=== PATIENT | male | born 1995 | race African-American/Black ===

== ENCOUNTER 2022-04-08 07:10 | Inpatient (IN) ==
--- NOTE | 2022-04-08 08:00 | Emergency Department Note ---
History of Present Illness General Chief complaint: Respiratory Problems Stated complaint: CLOTS IN LUNGS,HARD TO BREATHE Time Seen by Provider: 04/08/22 07:24 History of Present Illness Maximum Pain Intensity: 5 This 26-year-old male presents today with a female healthcare applications analyst, for evaluation of increasing shortness of breath, right shoulder pain, and left calf pain. Patient was seen here 3 days ago and was diagnosed with bilateral PEs with right subsegmental infarct of the lung. He was placed on Eliquis at that time. Patient states he has been taking it as directed. He has been taking the etodolac as prescribed as well. He states it is not doing anything for his pain. He feels his shortness of breath is getting worse. He is experiencing a dry cough with exertion. He denies any nausea, or vomiting. Shoulder pain developed yesterday. Left calf pain developed yesterday. It is medial. Patient has a family history of fatal PE in his brother. Home Medications Medication Instructions Recorded Confirmed Type ketoconazole 2 % shampoo 1 applic topical DAILY 12/08/20 04/08/22 History albuterol sulfate 90 mcg/actuation 2 puff inhalation Q4 PRN Wheezing 01/03/22 04/08/22 History aerosol inhaler gabapentin 300 mg capsule 300 mg PO UD 01/03/22 04/08/22 History oxycodone 5 mg tablet 5 mg PO UD PRN Pain 01/03/22 04/08/22 History pantoprazole 40 mg tablet,delayed 40 mg PO DAILY 01/03/22 04/08/22 History release tretinoin 0.05 % topical cream 1 applic topical HS 01/03/22 04/08/22 History ursodiol 300 mg capsule 300 mg PO BID 01/03/22 04/08/22 History etodolac 200 mg capsule 200 mg PO Q12H PRN pain #14 caps 04/05/22 04/08/22 Rx enoxaparin 150 mg/mL subcutaneous 150 mg subcut Q12H #10 mL 04/09/22 Rx syringe (Lovenox) warfarin 5 mg tablet 5 mg PO DAILY #30 tabs 04/09/22 Rx Allergies Allergy/AdvReac Type Severity Reaction Status Date / Time procaine [From Novocain] Allergy Intermediate TINGLING/SW Verified 01/03/22 00:55 SYED Past Med/Surg History Medical History Asthma WELL CONTROLLED Defecation symptom INABILITY/PAIN...REASON FOR UPCOMING PROCEDURE History of anesthesia reaction WAS "PUT UNDER" FOR WISDOM TEETH AND WOKE UP DURING PROCEDURE Narcolepsy POSSIBLE - UPCOMING SLEEP STUDY FOR Sleep apnea POSSIBLE...UPCOMING SLEEP STUDY FOR Surgical History [place] teeth extracted Family History (Updated 04/08/22 @ 08:02 by Chico Samuels PA-C) Grandfather Family history of colon cancer Grandmother (Maternal) Family history of diabetes mellitus Grandfather (Maternal) Family history of diabetes mellitus Brother Pulmonary embolism Social History Smoking Status: Never smoker Do You Dip or Chew Tobacco: No; Hx Alcohol Use: No Hx Substance Use: No Preferred Language: Jamaican Communication Ability: Effective Concrete Technician Required: No Beliefs That Will Affect Care: None Current Living Situation: Parent Current Living Situation Comment: home Other Information That Helps Us Care for You: No Feels Safe at Home: Yes Safety Concerns: Feels Safe At This Time Assistive Devices: None Review of Systems A total of 10 systems reviewed and were otherwise negative Physical Exam Vital Signs Vital Signs - 24 hr 04/08/22 07:20 04/08/22 07:48 Temperature 36.2 C L Temperature Source Temporal Artery Scan Pulse Rate 86 79 Pulse Rhythm Regular Regular Pulse Strength Normal Respiratory Rate 20 18 Respiratory Effort / Characteristics Non-Labored Spontaneous Respiratory Depth Normal Respiratory Pattern Regular Blood Pressure 130/81 Blood Pressure Mean 97 Blood Pressure Position Sitting Pulse Oximetry 97 97 Oxygen Delivery Method Room Air Room Air Sepsis Recent Fever Within 48 Hours No Sepsis New/Unexplained Change in Mental Status No Sepsis Action Taken by Nursing No Action Required General: Well-developed, well-nourished, young -Prydeinig male, in no acute distress. Sitting on the bed. Alert and oriented. Skin: Warm and dry with good turgor. No rashes or lesions. No ecchymosis or erythema. The patient is not diaphoretic. No abrasions. HEENT: Normocephalic atraumatic. Eyes PERRLA, EOMI. No conjunctiva or scleral injection. Nares patent bilaterally without turbinate enlargement. No significant drainage. No epistaxis. Oropharynx without erythema or exudate. Uvula midline, oral mucosa moist. No lesions present. His lips appear slightly swollen. No ecchymosis or other discoloration. Heart: Heart RRR. No MGR. Peripheral pulses are 2+. Lungs: Lungs are clear to auscultation. No crackles rhonchi or wheezing. Good air movement. The patient is able to take a deep breath. Abdomen: Abdomen was inspected, auscultated, and palpated. Bowel sounds present x 4. Obese. Soft, nontender to palpation. No hepato-splenomegaly. No masses noted. No rebound. Musculoskeletal: Gross motor function of the upper and lower extremities is int act and unremarkable. Left medial gastroc is tender to touch. No palpable cords. There is discomfort with Homans testing. Right shoulder evaluation reveals no obvious asymmetry. Full range of motion. No specific discomfort with palpation at the shoulder itself. Neurologic: Gross sensation is intact across the upper and lower extremities by soft touch. Course Administered Medications Discontinued Medications Acetaminophen (Acetaminophen 325 Mg Tab) 325 mg PO Q4H PRN PRN Reason: pain (1,2,3) Stop: 05/08/22 11:37 Last Admin: 04/08/22 19:47 Dose: 325 mg Documented By: SANJAY Diphenhydramine HCl (Diphenhydramine 50 Mg/Ml Vial) 25 mg IV NOW STA Stop: 04/08/22 17:51 Last Admin: 04/08/22 19:43 Dose: 25 mg Documented By: SANJAY Enoxaparin Sodium (Enoxaparin 150 Mg/Ml Syr) 150 mg SQ Q12H ELIO Stop: 05/09/22 11:59 Last Admin: 04/09/22 13:14 Dose: 150 mg Documented By: MOISES Gabapentin (Gabapentin 300 Mg Cap) 300 mg PO DAILY ELIO Stop: 05/08/22 11:35 Last Admin: 04/09/22 08:23 Dose: 300 mg Documented By: Admin: 04/08/22 12:44 Dose: 300 mg Documented By: ROYAL Heparin Sodium (Porcine) (Heparin Sod (Porcine) 1000 Unit/Ml) 9,000 units IV NOW ONE Stop: 04/08/22 12:01 Last Admin: 04/08/22 12:44 Dose: 9,000 units Documented By: ROYAL Co-signed By: [id number] Heparin Sodium/Dextrose (Heparin Iv Adult Wt-Based Standard With Bolus Protocol) 1 each IV Q15M [facility]; Protocol Stop: 05/08/22 11:41 Last Admin: 04/08/22 14:24 Dose: 1 each Documented By: ROYAL Hydromorphone HCl (Hydromorphone Inj 0.5 Mg/0.5 Ml Syr) 0.5 mg IV NOW STA Stop: 04/08/22 10:36 Last Admin: 04/08/22 10:41 Dose: 0.5 mg Documented By: AMBIKA Heparin Sodium/Dextrose (Heparin Sodium/Dextrose) 25,000 units in 500 mls @ 41 mls/hr IV .[id number] [facility]; Protocol Stop: 05/08/22 11:59 Last Titration: 04/09/22 11:56 Dose: 0 units/hr, 0 mls/hr Documented By: MOISES Co-signed By: [id number] Titration: 04/09/22 07:41 Dose: 1,950 units/hr, 39 mls/hr Documented By: MOISES Co-signed By: ARTHUR Titration: 04/09/22 06:54 Dose: 1,950 units/hr, 39 mls/hr Documented By: MOISES Co-signed By: SANJAY Admin: 04/09/22 00:53 Dose: 1,950 units/hr, 39 mls/hr Documented By: SANJAY Co-signed By: QG Titration: 04/09/22 00:53 Dose: 1,950 units/hr, 39 mls/hr Documented By: SANJAY Co-signed By: QG Titration: 04/08/22 20:03 Dose: 1,950 units/hr, 39 mls/hr Documented By: SANJAY Co-signed By: [id number] Titration: 04/08/22 18:58 Dose: 2,050 units/hr, 41 mls/hr Documented By: SANJAY Co-signed By: ROYAL Admin: 04/08/22 12:44 Dose: 2,050 units/hr, 41 mls/hr Documented By: ROYAL Co-signed By: [id number] Prochlorperazine 10 mg/ (Syringe) 10 mls @ 5 mls/min IV ONE ONE Stop: 04/08/22 17:51 Last Admin: 04/08/22 19:33 Dose: 5 mls/min Documented By: SANJAY Sodium Chloride (Nss 1000ml) 1,000 mls @ 999 mls/hr IV .Q1H1M ONE Stop: 04/09/22 13:01 Last Infusion: 04/09/22 13:59 Dose: 0 mls/hr Documented By: Admin: 04/09/22 12:14 Dose: 999 mls/hr Documented By: MOISES Ioversol (Optiray 300 500ml) 120 ml IV ONCE ONE Stop: 04/08/22 08:49 Last Admin: 04/08/22 08:48 Dose: 120 ml Documented By: ELIAZAR Morphine Sulfate (Morphine Sulfate 2 Mg/Ml Carp) 2 mg IV NOW STA Stop: 04/08/22 10:25 Last Admin: 04/08/22 10:49 Dose: Not Given Documented By: AMBIKA Morphine Sulfate (Morphine Sulfate 2 Mg/Ml Carp) 2 mg IV Q4H PRN PRN Reason: Pain (4,5,6+) Stop: 04/22/22 11:37 Last Admin: 04/08/22 17:22 Dose: 2 mg Documented By: ROYAL Ondansetron HCl (Ondansetron Inj 2 Mg/Ml 2 Ml Vial) 4 mg IV NOW STA Stop: 04/08/22 10:25 Last Admin: 04/08/22 10:41 Dose: 4 mg Documented By: AMBIKA Ondansetron HCl (Ondansetron Inj 2 Mg/Ml 2 Ml Vial) 4 mg IV Q4H PRN PRN Reason: Nausea Stop: 05/08/22 17:29 Last Admin: 04/08/22 17:42 Dose: 4 mg Documented By: ROYAL Pantoprazole Sodium (Pantoprazole 40 Mg Tab) 40 mg PO DAILY ELIO Stop: 05/09/22 08:59 Last Admin: 04/09/22 08:23 Dose: 40 mg Documented By: MOISES Ursodiol (Ursodiol 300 Mg Cap) 300 mg PO BID ELIO Stop: 05/08/22 20:59 Last Admin: 04/09/22 08:23 Dose: 300 mg Documented By: Admin: 04/08/22 21:03 Dose: 300 mg Documented By: SANJAY Medical Decision Making Differential Diagnosis Increasing PE, additional pulmonary infarct, ACS, pneumonia, upper extremity DVT, pulmonary hypertension Medical Records Attestation: I reviewed the patient's medical records. Home Medications Current Medication List: was personally reviewed by me Laboratory Data CBC, chemistry panel, troponin, and COVID test were obtained today. CBC is unremarkable. COVID test is negative. Troponin is normal at 5.9. Chemistry panel shows normal renal function. Mild elevation in AST and ALT. Result diagrams: 04/09/22 06:35 04/09/22 06:35 Lab Results 04/08/22 04/08/22 04/08/22 Range/Units 07:48 07:48 07:48 WBC 5.67 (4.8-10.8) K/ul RBC 5.01 (4.63-6.08) M/uL Hgb 14.9 (14.0-18.0) g/dl Hct 44.7 (40.1-51.0) % MCV 89.2 (80.0-100.0) fL MCH 29.7 (25.0-34.0) pg MCHC 33.3 (32.0-36.0) g/dL RDW Std Deviation 44.6 (36.4-46.3) fL RDW Coeff of Negro 13.7 (11.5-14.5) % Plt Count 178 (130-400) K/uL MPV 13.1 H (9.4-12.4) fL Immature Gran % (Auto) 0.2 % Neut % (Auto) 77.8 % Lymph % (Auto) 15.3 % [place] % (Auto) 6.3 % Eos % (Auto) 0.2 % Baso % (Auto) 0.2 % Neut # (Auto) 4.41 (1.4-6.5) K/uL Lymph # (Auto) 0.87 L (1.2-3.4) K/uL [place] # (Auto) 0.36 (0.24-0.82) K/uL Eos # (Auto) 0.01 (0-0.50) K/uL Baso # (Auto) 0.01 (0-0.2) K/uL Immature Gran # (Auto) 0.01 (0.00-0.02) K/uL PT 12.2 H (9.0-12.0) Seconds INR 1.2 H (0.9-1.1) APTT 34.4 H (21.0-31.0) Seconds PTT Ratio 1.3 Sodium 140 (136-145) mmol/L Potassium 4.0 (3.5-5.1) mmol/L Chloride 106 (98-107) mmol/L Carbon Dioxide 28 (21-32) mmol/L Anion Gap 6 (3-11) BUN 6 (6-23) mg/dl Creatinine 0.74 (0.6-1.4) mg/dl Est Cr Clr Drug Dosing 241.9 ml/min Est GFR ( Amer) 147.5 ml/min Est GFR (Non-Af Amer) 127.3 ml/min BUN/Creatinine Ratio 8.1 L (10-20) Glucose 107 H (70-99(Fasting)) mg/dl Calcium 8.5 (8.5-10.1) mg/dl Total Bilirubin 0.7 (0.2-1.0) mg/dl AST 51 H (13-39) U/L ALT 57 H (7-52) U/L Alkaline Phosphatase 101 (34-104) U/L Troponin I High Sens 5.9 (0-20) pg/ml Total Protein 6.3 (6.0-8.3) gm/dl Albumin 3.8 (3.4-5.0) gm/dl Globulin 2.5 (2.5-4.0) gm/dl Albumin/Globulin Ratio 1.5 (0.9-2) SARS-CoV-2, RNA, NAAT (NEGATIVE) 04/08/22 Range/Units 10:00 WBC (4.8-10.8) K/ul RBC (4.63-6.08) M/uL Hgb (14.0-18.0) g/dl Hct (40.1-51.0) % MCV (80.0-100.0) fL MCH (25.0-34.0) pg MCHC (32.0-36.0) g/dL RDW Std Deviation (36.4-46.3) fL RDW Coeff of Negro (11.5-14.5) % Plt Count (130-400) K/uL MPV (9.4-12.4) fL Immature Gran % (Auto) % Neut % (Auto) % Lymph % (Auto) % [place] % (Auto) % Eos % (Auto) % Baso % (Auto) % Neut # (Auto) (1.4-6.5) K/uL Lymph # (Auto) (1.2-3.4) K/uL [place] # (Auto) (0.24-0.82) K/uL Eos # (Auto) (0-0.50) K/uL Baso # (Auto) (0-0.2) K/uL Immature Gran # (Auto) (0.00-0.02) K/uL PT (9.0-12.0) Seconds INR (0.9-1.1) APTT (21.0-31.0) Seconds PTT Ratio Sodium (136-145) mmol/L Potassium (3.5-5.1) mmol/L Chloride (98-107) mmol/L Carbon Dioxide (21-32) mmol/L Anion Gap (3-11) BUN (6-23) mg/dl Creatinine (0.6-1.4) mg/dl Est Cr Clr Drug Dosing ml/min Est GFR ( Amer) ml/min Est GFR (Non-Af Amer) ml/min BUN/Creatinine Ratio (10-20) Glucose (70-99(Fasting)) mg/dl Calcium (8.5-10.1) mg/dl Total Bilirubin (0.2-1.0) mg/dl AST (13-39) U/L ALT (7-52) U/L Alkaline Phosphatase (34-104) U/L Troponin I High Sens (0-20) pg/ml Total Protein (6.0-8.3) gm/dl Albumin (3.4-5.0) gm/dl Globulin (2.5-4.0) gm/dl Albumin/Globulin Ratio (0.9-2) SARS-CoV-2, RNA, NAAT NEGATIVE (NEGATIVE) Imaging Data My Impression: Chest x-ray obtained today shows a right basilar consolidation. Additional radiographic follow-up is recommended. No large pleural effusion or pneumothorax. Left lung appears clear. CTA of the chest was obtained because of his radiographic findings and dyspnea. He continues to have segmental and subsegmental pulmonary emboli of the right lower lobe. There is a perfusion defect in the anterior left kidney. This likely represents a small renal infarct. Pulmonary infarction of the right long persist. Small right pleural effusion. Left lung is clear. Venous Doppler of the lower extremities was obtained due to his calf pain and PEs. There is no evidence for DVT in the right or left leg. ECG Data Additional Comments: EKG obtained today shows a normal sinus rhythm with a rate of 76. No acute changes. No significant change from EKG obtained on April 05. This was reviewed with Dr. Scott. Blood Pressure Blood Pressure Findings: Normal blood pressure MDM Narrative Patient was evaluated in room C6. Conservative care measures were discussed. IV was established. Labs were obtained. EKG was obtained. Patient was placed on a nuclear monitoring technician throughout his stay in the ED. He remained in normal sinus rhythm with a rate in the 80s. Chest x-ray and CTA of the chest were also obtained. He shows additional infarct of the left kidney, which is new since 3 days ago. Patient was given Dilaudid 0.5 mg IV and Zofran 4 mg IV for his pain. Discomfort improved. Because of his increasing discomfort, I did speak with Dr. Benites regarding his anticoagulation. She recommended that he be on heparin instead of the Eliquis due to his size. His Eliquis may be an effective at his current dosing. Because of these factors, I did discuss admission with the patient. [facility] Please see that dictation for final management and outcome. Patient remained stable while in the ED. Impression & Plan Pulmonary emboli, Renal infarct [facility] Consultation was previously obtained with Dr. Benites. Care plan was discussed with Dr. Scott. Vitals remained stable while in the ED. Discharge Plan Visit Data Chief Complaint: Respiratory Problems Stated Complaint: CLOTS IN LUNGS,HARD TO BREATHE ED Provider: Juan Francisco Scott ED Midlevel Provider: Chico Samuels Discharge Problem: Pulmonary emboli, Renal infarct Patient Disposition: Admitted As Inpatient Discharge Instructions Interventions: ED Discharge Assessment Last Done: 04/08/22 13:28
[2022-04-08 08:23] LABS: Basophils # (auto) 0.01 K/uL (0-0.2); Basophils % (auto) 0.2 %; Eosinophils # (auto) 0.01 K/uL (0-0.50); Eosinophils % (auto) 0.2 %; Hematocrit (blood only) 44.7 % (40.1-51.0); Hemoglobin 14.9 g/dl (14.0-18.0); Immature Granulocytes # (auto) 0.01 K/uL (0.00-0.02); Immature Granulocytes % (auto) 0.2 %; Lymphocytes # (auto) 0.87 K/uL (1.2-3.4); Lymphocytes % (auto) 15.3 %; Mean Corpuscular Hemoglobin 29.7 pg (25.0-34.0); Mean Corpuscular Hgb Conc 33.3 g/dL (32.0-36.0); Mean Corpuscular Volume 89.2 fL (80.0-100.0); Mean Platelet Volume 13.1 fL (9.4-12.4); Monocytes # (auto) 0.36 K/uL (0.24-0.82); Monocytes % (auto) 6.3 %; Neutrophils # (auto) 4.41 K/uL (1.4-6.5); Neutrophils % (auto) 77.8 %; Platelet Count 178 K/uL (130-400); RDW Coefficient of Variation 13.7 % (11.5-14.5); RDW Standard Deviation 44.6 fL (36.4-46.3); Red Blood Count 5.01 M/uL (4.63-6.08); White Blood Count 5.67 K/ul (4.8-10.8)
--- NOTE | 2022-04-08 08:29 | XRay Report ---
SINGLE VIEW CHEST CLINICAL HISTORY: Dyspnea FINDINGS: An AP, portable, upright chest radiograph is compared to study dated 03/30/2022. The cardiom ediastinal silhouette is unremarkable. There is right basilar consolidation. Left lung appears clear. No large pleural effusion or pneumothorax is seen. The bony thorax is grossly intact. IMPRESSION: There is right basilar consolidation. Correlate clinically for evidence of pneumonia/aspi ration pneumonitis. Radiographic follow-up to resolution is recommended. ACT 112: Negative or not required by law. Electronically signed by: Vickey Godinez M.D. 04/08/2022 8:28 AM
[2022-04-08 08:32] LABS: Troponin I High Sensitivity 5.9 pg/ml (0-20)
[2022-04-08 08:33] LABS: Albumin Globulin Ratio 1.5 (0.9-2); Albumin Level 3.8 gm/dl (3.4-5.0); BUN Creatinine Ratio 8.1 (10-20); Bilirubin,Total 0.7 mg/dl (0.2-1.0); Calcium 8.5 mg/dl (8.5-10.1); Creatinine Clr Calc Pharmacy 241.9 ml/min; Est GFR (African American) 147.5 ml/min; Est GFR (Non-African American) 127.3 ml/min; Globulin 2.5 gm/dl (2.5-4.0); Total Protein 6.3 gm/dl (6.0-8.3)
[2022-04-08] MEDS ORDERED: OPTIRAY 300 500mL IV ONE (08:48)
--- NOTE | 2022-04-08 09:14 | CT Scan Report ---
CT ANGIOGRAM OF THE CHEST CLINICAL HISTORY: Atypical chest pain. Dyspnea. COMPARISON STUDY: Chest x-ray dated 04/08/2022. Chest CT dated 01/02/2022 TECHNIQUE: Following the IV administration of 120 cc of Optiray 300, CT angiogram of the chest was pe rformed from the thoracic inlet to the upper abdomen utilizing the dissection protocol. Images are re viewed in the axial, sagittal, and coronal planes. 3-D MIPS images are created and assessed. IV contr ast was administered without complication. A dose lowering technique was utilized adhering to the pr inciples of ALARA. CT DOSE: 1264.74 mGy.cm FINDINGS: Thyroid: Imaged portions of the thyroid gland are normal in size and attenuation. Thoracic aorta: The thoracic aorta is normal in caliber and demonstrates standard 3-vessel arch anato my. No dissection is seen. The arch vessels are widely patent. Pulmonary vasculature: The pulmonary trunk is dilated measuring 3.8 cm in diameter. This suggests pul monary artery hypertension. There are pulmonary emboli within segmental and subsegmental branches of the right lower lobe pulmonary artery. No additional pulmonary emboli are identified. Note that this examination was not protocoled to assess for pulmonary embolus. Heart: The heart is normal in size and without pericardial effusion. Lungs and pleural spaces: There are foci of wedge-shaped subpleural consolidation in the right lower lobe as well as a small right pleural effusion. Foci of nodular pleural thickening are seen along the right major and minor fissures. This is of doubtful significance. There are scattered calcified gran ulomas. The trachea and central airways are clear. Mediastinum: There is no mediastinal lymphadenopathy. Vanessa: Clear. Axillae: There is no axillary lymphadenopathy. Upper abdomen: Postsurgical changes noted in the stomach. There is a perfusion defect in the anterior left kidney seen on image #[id number]. The liver steatotic. Skeletal structures: No lytic or blastic bony lesions are seen. IMPRESSION: 1. Unremarkable CT angiogram of the thoracic aorta. 2. There are segmental and subsegmental pulmonary emboli within branches of the right lower lobe pulm onary artery. 3. There is a perfusion defect in the anterior left kidney, likely representing a small renal infarct . 4. There are foci of subpleural consolidation in the right lung, likely representing pulmonary infarc ts given the presence of right-sided pulmonary emboli. Clinical correlation will be required. 5. Small right pleural effusion. 6. The left lung is clear. ACT 112: Negative or not required by law. Electronically signed by: Vickey Godinez M.D. 04/08/2022 9:13 AM
--- NOTE | 2022-04-08 09:23 | Ultrasound Report ---
ULTRASOUND BILATERAL LOWER EXTREMITY VENOUS CLINICAL HISTORY: Pulmonary embolus. COMPARISON STUDY: No priors. TECHNIQUE: Real-time, grayscale, and color Doppler sonography of the deep veins of the right and left lower extremity was performed from the inguinal crease to the calf. Compression and augmentation wer e utilized. FINDINGS: There is no sonographic evidence of deep venous thrombosis identified in the right or left lower extremity. The common femoral, superficial femoral, and popliteal veins are patent and normally compressible bilaterally. The greater saphenous vein and the profunda femoris vein at the junction w ith the common femoral vein are clear in both legs. The visualized calf veins are patent bilaterally. IMPRESSION: There is no sonographic evidence of deep venous thrombosis identified in the right or lef t lower extremity. ACT 112: Negative or not required by law. Electronically signed by: Vickey Godinez M.D. 04/08/2022 9:22 AM
--- NOTE | 2022-04-08 10:16 | Hospitalist Consultation ---
Date of Consultation April 08, 2022 History of Present Illness Reason for Consultation: Worsening PE symptoms with small renal infarct noted on CTA today Requesting Physician: Dr. Juan Francisco Scott Attending Physician: Dr. Avila Neri History of Present Illness Slava is a 26 year old male with a PMH significant for recently diagnosed right segmental/subsegmental PE's on 04/05/22, started on Eliquis, KAYKAY, IBS, allergic rhinitis Allergies Allergy/AdvReac Type Severity Reaction Status Date / Time procaine [From Novocain] Allergy Intermediate TINGLING/SW Verified 01/03/22 00:55 [facility] Home Medications Medication Instructions Recorded Confirmed Type ketoconazole 2 % shampoo 1 applic topical DAILY 12/08/20 04/08/22 History albuterol sulfate 90 mcg/actuation 2 puff inhalation Q4 PRN Wheezing 01/03/22 04/08/22 History aerosol inhaler gabapentin 300 mg capsule 300 mg PO UD 01/03/22 04/08/22 History oxycodone 5 mg tablet 5 mg PO UD PRN Pain 01/03/22 04/08/22 History pantoprazole 40 mg tablet,delayed 40 mg PO DAILY 01/03/22 04/08/22 History release tretinoin 0.05 % topical cream 1 applic topical HS 01/03/22 04/08/22 History ursodiol 300 mg capsule 300 mg PO BID 01/03/22 04/08/22 History etodolac 200 mg capsule 200 mg PO Q12H PRN pain #14 caps 04/05/22 04/08/22 Rx apixaban 5 mg tablet (Eliquis) 10 mg PO BID 04/08/22 04/08/22 History Patient History Medical History Asthma WELL CONTROLLED Defecation symptom INABILITY/PAIN...REASON FOR UPCOMING PROCEDURE History of anesthesia reaction WAS "PUT UNDER" FOR WISDOM TEETH AND WOKE UP DURING PROCEDURE Narcolepsy POSSIBLE - UPCOMING SLEEP STUDY FOR Sleep apnea POSSIBLE...UPCOMING SLEEP STUDY FOR Surgical History [place] teeth extracted Family History (Updated 04/08/22 @ 08:02 by Chico Samuels PA-C) Grandfather Family history of colon cancer Grandmother (Maternal) Family history of diabetes mellitus Grandfather (Maternal) Family history of diabetes mellitus Brother Pulmonary embolism Social History Smoking Status: Never smoker Hx Alcohol Use: Yes Alcohol type: wine Preferred Language: Montenegrin Communication Ability: Effective General Manager Food Required: No Beliefs That Will Affect Care: None Current Living Situation: Parent Current Living Situation Comment: MOTHER AND STEPFATHER Feels Safe at Home: Yes Assistive Devices: Glasses Results & Data Results & Data ([facility]) Vital Signs (Past 12 Hours) Vital Signs Temp Pulse Pulse Resp BP BP Pulse Ox 04/08/22 08:50 71 20 148/83 H 98 04/08/22 07:48 79 18 97 04/08/22 07:20 36.2 C L 86 20 130/81 97 O2 Del Method 04/08/22 08:50 Room Air 04/08/22 07:48 Room Air 04/08/22 07:20 Room Air PG Care Time/CCT Total # of Minutes Spent Total Time Spent with Patient: Total time spent is greater than 50% in coordination of care (as documented) at patient's floor/unit and/or counseling patient: Coding
[2022-04-08] MEDS ORDERED: MoRPHine SULFATE 2 MG/ML CARP IV STA (10:24)
[2022-04-08] MEDS ORDERED: ONDANSETRON INJ 2 MG/ML 2 ML VIAL IV STA (10:24)
[2022-04-08] MEDS ORDERED: HYDROmorphone INJ 0.5 MG/0.5 ML SYR IV STA (10:35)
[2022-04-08 11:26] LABS: INR 1.2 (0.9-1.1); Partial Thromboplastin Ratio 1.3; Partial Thromboplastin Time 34.4 Seconds (21.0-31.0); Prothrombin Time 12.2 Seconds (9.0-12.0)
--- NOTE | 2022-04-08 11:35 | History & Physical Report ---
Date of Service April 08, 2022 Assessment & Plan (1) Pulmonary emboli: Plan: -Admit to med/tele -Patient is currently afebrile, hemodynamically stable, and stable on RA -Currently, PESI score is low at 46, however, it is unclear at this time if the patient is still clotting after starting Eliquis. Appreciate the assistance from Dr. Brsicoe, she explained that she would not recommend Eliquis due to the patient's BMI and highly recommended starting heparin infusion with eventual transition to lovenox or warfarin. -Patient's last dose of Eliquis was last evening, confirmed with Pharmacy, will give heparin bolus then start infusion -Will start hypercoagulable workup including Anti-thrombin III, Factor 2, Factor V Leiden, Homocystine, Protein C and Protein S testing. Called and spoke to his nurse, instructed her to wait to start heparin until labs were collected to prevent influencing results -Will obtain TTE to look for signs of thrombi -Monitor on tele and pulse oximetry -Pain control with tylenol and morphine for now, may need to escalate -AM CBC and CMP (2) Renal infarct: Plan: -Small left renal infarct noted on CTA today -Spoke with Dr. Caldera of Nephrology, appreciate his help -Stressed the importance of ensuring the patient is anticoagulated -Renal function currently stable -Monitor renal function on AM labs Present on Admission?: Yes (3) Transaminitis: Plan: -AST and ALT elevated at 85 and 84 respectively on 04/05, patient denied abdominal pain at that time. Today, AST is 51 and ALT is 57, still no abdominal pain or other symptoms -Steatotic liver noted on CTA, liekly the cause of the transaminitis, continue to trend for now -If LFTs would increase again would recommend continued workup with hepatitis panel and tick brone panel -Monitor AM CMP (4) Sleep apnea: Plan: Will order HS CPAP Plan The patient was discussed with Dr. Neri at the timeof admission History of Present Illness Chief Complaint: Worsening PE symptoms Primary Care Provider: Darrin Summers MD Slava is a 26 year old male with a PMH significant for recently diagnosed right segmental and subsegmental PE's on 04/05/22. obesity, KAYKAY, allergic rhinitis, IBS, and transaminitis who presented to the [facility] ED on 04/08/22 with worsening back and and SOB. Per chart review, the patient was last seen in the [facility] ED on 04/05/22 after undergoing outpatient CTA by his PCP. The patient's twin brother last year as the result of a PE. He had been experiencing back pain and SOB. CTA at [facility] on 04/05 showed right segmental and subsegmental PE's. At that time the patient was given the option for admission or discharge on oral anticoagulation, he wished to be discharged home. He was given the first dose of Eliquis in the ED and discharged home on Eliquis. During his last ED visit the patient was noted to have eleavted LFT's, he denied abdominal pain at that time. Since discharge the patient states that he has had continued back pain and SOB, he has also developed right s houlder pain despite taking Oxycodone and etodolac. CXR today shows right basilar consolidation, bilateral lower extremity dopplers performed today were negative for DVT. Repeat CTA today shows signs of right lung infarct, small right pleural effusion, and newly seen perfusion defect in the anterior left kidney, likely representing a small renal infarct. The patient was found to be afebrile, hemodynamically stable, and stable on RA. Labs were remarkable for stable platelet count, stable renal function, glucose of 107, and improving AST and ALT levels. Discussions were held with Dr. Briscoe of the anticoagulation clinic who recommended admission on heparin with transition to Lovenox or warfarin on discharge. At the time of the exam the patient was sitting comfortably in bed in no acute distress. He states that the medication he was discharged on for pain did not help at all. He was recently given 0.5 mg IV dilaudid which is starting to kick in during my exam, he states that the Dilaudid has significantly improved his symptoms. He denies current fevers, chills, chest pain, cough, abdominal pain, dysuria, hematuria, bloody bowel movements, and melena. He is in agreement with admission on heaprin with eventual transition to lovenox or warfarin. Allergies Allergy/AdvReac Type Severity Reaction Status Date / Time procaine [From Novocain] Allergy Intermediate TINGLING/SW Verified 01/03/22 00:55 [facility] Home Medications Medication Instructions Recorded Confirmed Type ketoconazole 2 % shampoo 1 applic topical DAILY 12/08/20 04/08/22 History albuterol sulfate 90 mcg/actuation 2 puff inhalation Q4 PRN Wheezing 01/03/22 04/08/22 History aerosol inhaler gabapentin 300 mg capsule 300 mg PO UD 01/03/22 04/08/22 History oxycodone 5 mg tablet 5 mg PO UD PRN Pain 01/03/22 04/08/22 History pantoprazole 40 mg tablet,delayed 40 mg PO DAILY 01/03/22 04/08/22 History release tretinoin 0.05 % topical cream 1 applic topical HS 01/03/22 04/08/22 History ursodiol 300 mg capsule 300 mg PO BID 01/03/22 04/08/22 History etodolac 200 mg capsule 200 mg PO Q12H PRN pain #14 caps 04/05/22 04/08/22 Rx enoxaparin 150 mg/mL subcutaneous 150 mg subcut Q12H #10 mL 04/09/22 Rx syringe (Lovenox) warfarin 5 mg tablet 5 mg PO DAILY #30 tabs 04/09/22 Rx Past Med/Surg History Medical History Asthma WELL CONTROLLED Defecation symptom INABILITY/PAIN...REASON FOR UPCOMING PROCEDURE History of anesthesia reaction WAS "PUT UNDER" FOR WISDOM TEETH AND WOKE UP DURING PROCEDURE Narcolepsy POSSIBLE - UPCOMING SLEEP STUDY FOR Sleep apnea POSSIBLE...UPCOMING SLEEP STUDY FOR Surgical History [place] teeth extracted Family History Grandfather Family history of colon cancer Grandmother (Maternal) Family history of diabetes mellitus Grandfather (Maternal) Family history of diabetes mellitus Brother Pulmonary embolism Social History Smoking Status: Never smoker Hx Alcohol Use: No Hx Substance Use: No Preferred Language: Korean Communication Ability: Effective Benefits Processor Required: No Beliefs That Will Affect Care: None Current Living Situation: Parent Current Living Situation Comment: home Feels Safe at Home: Yes Assistive Devices: None Review of Systems Review of Systems: Denies current fever, chills, headache, changes in vision, hearing, taste, and smell, chest pain, abdominal pain, nausea, vomiting, diarrhea, hematemesis, melena, dysuria, hematuria, and recent falls. All systems have been reviewed and are otherwise negative. Physical Exam Physical Exam: Physical Exam: General: In no acute distress, stated age, well-nourished, good hygiene HEENT: Normocephalic, atraumatic, no scleral icterus, pupils around round, symmetrical, and reactive to light, moist mucus membranes, trachea midline, no thyromegaly Chest/Pulm: No respiratory distress, symmetrical chest expansion, clear breath sounds throughout Cardiac: RRR, no murmurs noted Abdomen: Negative for ascites and bruising, normoactive bowel sounds, soft, non-tender to palpation throughout Musculoskeletal: Symmetrical and without signs of acute trauma, upper and lower extremities with full ROM, no atrophy, spasticity, or flaccidity Extremities: Radial, dorsalis pedis, and posterior tibial pulses are intact and symmetrical, no edema noted in the BL LE's Skin: Warm, dry, no rashes , lesions, or scars noted Neuro: Alert and oriented to person, place, month, year, and president, no focal defects, CN II-XII tested and intact, finger to nose test negative, no tremors noted Psych: No acute distress, calm and cooperative during the exam Results & Data Results & Data ([facility]) Vital Signs (Past 12 Hours) Vital Signs Temp Pulse Pulse Resp BP BP Pulse Ox 04/08/22 10:50 56 L 18 140/72 98 04/08/22 08:50 71 20 148/83 H 98 04/08/22 07:48 79 18 97 04/08/22 07:20 36.2 C L 86 20 130/81 97 O2 Del Method 04/08/22 10:50 04/08/22 08:50 Room Air 04/08/22 07:48 Room Air 04/08/22 07:20 Room Air Laboratory Results Abnormal lab results 04/08/22 04/08/22 Range/Units 07:48 07:48 MPV 13.1 H (9.4-12.4) fL Lymph # (Auto) 0.87 L (1.2-3.4) K/uL BUN/Creatinine Ratio 8.1 L (10-20) Glucose 107 H (70-99(Fasting)) mg/dl AST 51 H (13-39) U/L ALT 57 H (7-52) U/L Diagnostic Findings Chest X-Ray 04/08/22 07:33 SINGLE VIEW CHEST CLINICAL HISTORY: Dyspnea FINDINGS: An AP, portable, upright chest radiograph is compared to study dated 03/30/2022. The cardiomediastinal silhouette is unremarkable. There is right basilar consolidation. Left lung appears clear. No large pleural effusion or pneumothorax is seen. The bony thorax is grossly intact. IMPRESSION: There is right basilar consolidation. Correlate clinically for evidence of pneumonia/aspiration pneumonitis. Radiographic follow-up to resolution is recommended. ACT 112: Negative or not required by law. Electronically signed by: Vickey Godinez M.D. 04/08/2022 8:28 AM Venous Doppler Study 04/08/22 07:37 ULTRASOUND BILATERAL LOWER EXTREMITY VENOUS CLINICAL HISTORY: Pulmonary embolus. COMPARISON STUDY: No priors. TECHNIQUE: Real-time, grayscale, and color Doppler sonography of the deep veins of the right and left lower extremity was performed from the inguinal crease to the calf. Compression and augmentation were utilized. FINDINGS: There is no sonographic evidence of deep venous thrombosis identified in the right or left lower extremity. The common femoral, superficial femoral, and popliteal veins are patent and normally compressible bilaterally. The greater saphenous vein and the profunda femoris vein at the junction with the common femoral vein are clear in both legs. The visualized calf veins are patent bilaterally. IMPRESSION: There is no sonographic evidence of deep venous thrombosis identified in the right or left lower extremity. ACT 112: Negative or not required by law. Electronically signed by: Vickey Godinez M.D. 04/08/2022 9:22 AM Chest CTA 04/08/22 07:39 CT ANGIOGRAM OF THE CHEST CLINICAL HISTORY: Atypical chest pain. Dyspnea. COMPARISON STUDY: Chest x-ray dated 04/08/2022. Chest CT dated 01/02/2022 TECHNIQUE: Following the IV administration of 120 cc of Optiray 300, CT angiogram of the chest was performed from the thoracic inlet to the upper abdomen utilizing the dissection protocol. Images are reviewed in the axial, sagittal, and coronal planes. 3-D MIPS images are created and assessed. IV contrast was administered without complication. A dose lowering technique was utilized adhering to the principles of ALARA. CT DOSE: 1264.74 mGy.cm FINDINGS: Thyroid: Imaged portions of the thyroid gland are normal in size and attenuation. Thoracic aorta: The thoracic aorta is normal in caliber and demonstrates standard 3-vessel arch anatomy. No dissection is seen. The arch vessels are widely patent. Pulmonary vasculature: The pulmonary trunk is dilated measuring 3.8 cm in diameter. This suggests pulmonary artery hypertension. There are pulmonary emboli within segmental and subsegmental branches of the right lower lobe pulmonary artery. No additional pulmonary emboli are identified. Note that this examination was not protocoled to assess for pulmonary embolus. Heart: The heart is normal in size and without pericardial effusion. Lungs and pleural spaces: There are foci of wedge-shaped subpleural consolidation in the right lower lobe as well as a small right pleural effusion. Foci of nodular pleural thickening are seen along the right major and minor fissures. This is of doubtful significance. There are scattered calcified granulomas. The trachea and central airways are clear. Mediastinum: There is no mediastinal lymphadenopathy. Vanessa: Clear. Axillae: There is no axillary lymphadenopathy. Upper abdomen: Postsurgical changes noted in the stomach. There is a perfusion defect in the anterior left kidney seen on image #[id number]. The liver steatotic. Skeletal structures: No lytic or blastic bony lesions are seen. IMPRESSION: 1. Unremarkable CT angiogram of the thoracic aorta. 2. There are segmental and subsegmental pulmonary emboli within branches of the right lower lobe pulmonary artery. 3. There is a perfusion defect in the anterior left kidney, likely representing a small renal infarct. 4. There are foci of subpleural consolidation in the right lung, likely representing pulmonary infarcts given the presence of right-sided pulmonary emboli. Clinical correlation will be required. 5. Small right pleural effusion. 6. The left lung is clear. ACT 112: Negative or not required by law. Electronically signed by: Vickey Godinez M.D. 04/08/2022 9:13 AM ECG Additional Comments: Normal sinus rhythm Normal ECG When compared with ECG of 05-APR-2022 16:51, No significant change was found Code Status & VTE Plan Code Status Full code VTE Prophylaxis Plan VTE Prophylaxis will be ordered: Yes Supervising Physician Co-Signing Physician Notes Patient seen and examined at bedside, during face to face encounter obtained a history and physical examination. I discussed plan of care with ALEKSANDAR Roberto and patient. I reviewed above note and agree with it. Patient will be admitted for pulmonary emboli and placed on heparin drip. Will transition to lovenox or warfarin. PG Care Time/CCT Total # of Minutes Spent Total Time Spent with Patient: Total time spent is greater than 50% in coordination of care (as documented) at patient's floor/unit and/or counseling patient: [place] [address] Initial Inpt Care Lvl 3 Patient Type Established Medical Decision Making High Complexity Diagnoses Pulmonary emboli I26.94 Pulmonary embolism type: multiple subsegmental (without acute cor pulmonale) Renal infarct N28.0 Transaminitis R74.01 Sleep apnea G47.30 (1) Pulmonary emboli Pulmonary embolism type: multiple subsegmental (without acute cor pulmonale) Qualified Code(s): I26.94 - Multiple subsegmental pulmonary emboli without acute cor pulmonale
[2022-04-08] MEDS ORDERED: ALBUTEROL HFA 8 GM INHALER INH PRN (11:36)
[2022-04-08] MEDS ORDERED: ACETAMINOPHEN 325 MG TAB PO PRN (11:38)
[2022-04-08] MEDS ORDERED: MoRPHine SULFATE 2 MG/ML CARP IV PRN (11:38)
[2022-04-08] MEDS ORDERED: NALOXONE HCL 0.4 MG/1 ML VIAL/CARP IV PRN (11:38)
[2022-04-08] MEDS ORDERED: Heparin IV Adult Wt-Based Standard WITH Bolus Protocol IV SCH (11:42)
[2022-04-08] MEDS ORDERED: HEPARIN SOD (PORCINE) 1000 UNIT/ML IV ONE (12:00)
[2022-04-08] MEDS: HEPARIN SODIUM/DEXTROSE 25,000 UNITS/500 ML BAG IV SCH (12:44)
[2022-04-08] MEDS: GABAPENTIN 300 MG CAP PO SCH (12:44)
--- NOTE | 2022-04-08 13:33 | XCELERA ---
[id number]
--- NOTE | 2022-04-08 13:52 | Electrocardiogram Report ---
Test Reason : Blood Pressure : / mmHG Vent. Rate : 076 BPM Atrial Rate : 076 BPM P-R Int : 160 ms QRS Dur : 094 ms QT Int : 376 ms P-R-T Axes : 041 009 023 degrees QTc Int : 423 ms Normal sinus rhythm Nonspecific ST abnormality When compared with ECG of 05-APR-2022 16:51, No significant change was found Confirmed by Carmine Logan ([id number]) on 04/08/2022 1:52:26 PM Referred By: REFERRED SELF Confirmed By:Jeremiah Logan
[2022-04-08] MEDS ORDERED: ONDANSETRON INJ 2 MG/ML 2 ML VIAL IV PRN (17:30)
[2022-04-08] MEDS ORDERED: PROCHLORPERAZINE 10 MG in SYRINGE 8 ML IV ONE (17:50)
[2022-04-08] MEDS ORDERED: diphenhydrAMINE 50 MG/ML VIAL IV STA (17:50)
[2022-04-08 19:22] LABS: Partial Thromboplastin Ratio 2.7
[2022-04-08 19:26] LABS: Partial Thromboplastin Time 74.9 Seconds (21.0-31.0)
[2022-04-08] MEDS: ursodioL 300 MG CAP PO SCH (21:03)
[2022-04-09] MEDS: HEPARIN SODIUM/DEXTROSE 25,000 UNITS/500 ML BAG IV SCH (00:53)
[2022-04-09 03:06] LABS: Partial Thromboplastin Ratio 2.4
[2022-04-09 03:10] LABS: Partial Thromboplastin Time 65.5 Seconds (21.0-31.0)
[2022-04-09 07:00] LABS: Hematocrit (blood only) 42.6 % (40.1-51.0); Hemoglobin 14.4 g/dl (14.0-18.0); Mean Corpuscular Hemoglobin 29.7 pg (25.0-34.0); Mean Corpuscular Hgb Conc 33.8 g/dL (32.0-36.0); Mean Corpuscular Volume 87.8 fL (80.0-100.0); RDW Coefficient of Variation 13.8 % (11.5-14.5); RDW Standard Deviation 44.7 fL (36.4-46.3); Red Blood Count 4.85 M/uL (4.63-6.08); White Blood Count 5.51 K/ul (4.8-10.8)
[2022-04-09 07:07] LABS: Mean Platelet Volume 13.5 fL (9.4-12.4); Platelet Count 170 K/uL (130-400)
[2022-04-09 07:34] LABS: Partial Thromboplastin Ratio 2.2
[2022-04-09 07:36] LABS: Albumin Globulin Ratio 1.5 (0.9-2); Albumin Level 3.6 gm/dl (3.4-5.0); BUN Creatinine Ratio 6.3 (10-20); Bilirubin,Total 0.8 mg/dl (0.2-1.0); Calcium 8.4 mg/dl (8.5-10.1); Creatinine Clr Calc Pharmacy 226.8 ml/min; Est GFR (African American) 143.6 ml/min; Est GFR (Non-African American) 123.9 ml/min; Globulin 2.4 gm/dl (2.5-4.0); Potassium 3.9 mmol/L (3.5-5.1)
[2022-04-09 07:40] LABS: Partial Thromboplastin Time 60.3 Seconds (21.0-31.0)
[2022-04-09] MEDS: ursodioL 300 MG CAP PO SCH (08:23)
[2022-04-09] MEDS: GABAPENTIN 300 MG CAP PO SCH (08:23)
[2022-04-09] MEDS ORDERED: PANTOprazole 40 MG TAB PO SCH (09:00)
[2022-04-09] MEDS ORDERED: ENOXAPARIN 1 MG/KG SQ SCH (11:15)
[2022-04-09] MEDS ORDERED: ENOXAPARIN 150 MG/ML SYR SQ SCH (12:00)
[2022-04-09] MEDS ORDERED: SODIUM CHLORIDE 0.9% 1000ML 1,000 ML IV ONE (12:01)
--- NOTE | 2022-04-09 13:52 | Discharge Summary ---
Date of Service April 09, 2022 Admission HPI Per Admitting Provider Slava is a 26 year old male with a PMH significant for recently diagnosed right segmental and subsegmental PE's on 04/05/22. obesity, KAYKAY, allergic rhinitis, IBS, and transaminitis who presented to the [facility] ED on 04/08/22 with worsening back and and SOB. Per chart review, the patient was last seen in the [facility] ED on 04/05/22 after undergoing outpatient CTA by his PCP. The patient's twin brother last year as the result of a PE. He had been experiencing back pain and SOB. CTA at [facility] on 04/05 showed right segmental and subsegmental PE's. At that time the patient was given the option for admission or discharge on oral anticoagulation, he wished to be discharged home. He was given the first dose of Eliquis in the ED and discharged home on Eliquis. During his last ED visit the patient was noted to have eleavted LFT's, he denied abdominal pain at that time. Since discharge the patient states that he has had continued back pain and SOB, he has also developed right shoulder pain despite taking Oxycodone and etodolac. CXR today shows right basilar consolidation, bilateral lower extremity dopplers performed today were negative for DVT. Repeat CTA today shows signs of right lung infarct, small right pleural effusion, and newly seen perfusion defect in the anterior left kidney, likely representing a small renal infarct. The patient was found to be afebrile, hemodynamically stable, and stable on RA. Labs were remarkable for stable platelet count, stable renal function, glucose of 107, and improving AST and ALT levels. Discussions were held with Dr. Briscoe of the anticoagulation clinic who recommended admission on heparin with transition to Lovenox or warfarin on discharge. At the time of the exam the patient was sitting comfortably in bed in no acute distress. He states that the medication he was discharged on for pain did not help at all. He was recently given 0.5 mg IV dilaudid which is starting to kick in during my exam, he states that the Dilaudid has significantly improved his symptoms. He denies current fevers, chills, chest pain, cough, abdominal pain, dysuria, hematuria, bloody bowel movements, and melena. He is in agreement with admission on heaprin with eventual transition to lovenox or warfarin. Admission Exam Per Admitting Provider General:In no acute distress, stated age, well-nourished, good hygiene HEENT:Normocephalic, atraumatic, no scleral icterus, pupils around round, symmetrical, and reactive to light, moist mucus membranes, trachea midline, no thyromegaly Chest/Pulm:No respiratory distress, symmetrical chest expansion, clear breath sounds throughout Cardiac:RRR, no murmurs noted Abdomen:Negative for ascites and bruising, normoactive bowel sounds, soft, non-tender to palpation throughout Musculoskeletal:Symmetrical and without signs of acute trauma, upper and lower extremities with full ROM, no atrophy, spasticity, or flaccidity Extremities:Radial, dorsalis pedis, and posterior tibial pulses are intact and symmetrical, no edema noted in the BL LE's Skin:Warm, dry, no rashes , lesions, or scars noted Neuro:Alert and oriented to person, place, month, year, and president, no focal defects, CN II-XII tested and intact, finger to nose test negative, no tremors noted Psych:No acute distress, calm and cooperative during the exam Principal Diagnosis Pulmonary Embolism Discharge Exam Constitutional well developed, well nourished, + morbidly obese, cooperative and comfortable Eyes PERRL, conjunctivae normal, anicteric sclerae ENMT external ear and nose normal, oropharynx normal Neck trachea midline, no thyromegaly Respiratory normal respiratory effort, lungs clear to auscultation Cardiovascular RRR, no murmur, no edema Chest (Breasts) normal inspection/palpation of breasts Gastrointestinal (Abdomen) normal bowel sounds, soft, nontender, no hepatosplenomegaly Skin no rashes, warm and dry Psychiatric A+Ox3, euthymic affect Discharge Data Allergies Allergy/AdvReac Type Severity Reaction Status Date / Time procaine [From Novocain] Allergy Intermediate TINGLING/SW Verified 01/03/22 00: 55 ELLING Consultations 04/08/22 10:23 ED Decision to Admit Stat Ordered Studies 04/08/22 07:37 US venous doppler LE BI Urgent 04/08/22 07:39 CTA chest w con [CT angio chest w con] Stat Hospital Course (1) Pulmonary emboli: (2) Renal infarct: (3) Transaminitis: (4) Sleep apnea: Plan 26yo Male PMH PE, obesity, IBS, VGS procedure here for chest pain SOB found to have PE and renal infarct. Pulmonary Embolism Patient found to have pulmonary embolism in 04/05/22, started on eliquis and sent home, however developed chest pain again returned to hospital. CTA chest: There are segmental and subsegmental pulmonary emboli within branches of the right lower lobe pulmonary artery. There is a perfusion defect in the anterior left kidney, likely representing a small renal infarct. There are foci of subpleural consolidation in the right lung, likely representing pulmonary infarcts given the presence of right-sided pulmonary emboli. Small right pleural effusion. Patient started on Heparin drip. He was transitioned to Lovenox 150mg BID 04/09/22, plan to discharge with close followup with PCP office to transition to Warfarin. We have started hypercoagulable workup including Anti-thrombin III, Factor 2, Factor V Leiden, Homocystine, Protein C and Protein S testing. Renal Infarct Patient found to have small renal infarct noted on left kidney. He denies abd pain blood in urine, BUN Creat wnl. No indication for vascular surgery found, will continue with anticoagulation. Transaminitis Noted on admit downtrending, wnl by today. Resolved KAYKAY Continued CPAP in hospital Total Time Total Time Spent Total Time Spent (In Minutes): see attending attestation Discharge Plan Discharge Items Patient Disposition: Home - Self-Care Reason For Visit: WORSENING PE SYMPTOMS Discharge Diagnosis: PE Activity: Resume your previous activity Non-emergency contact: Primary Care Provider Call non-emergency contact if: you have any medication questions, your symptoms worsen and you have a fever Follow-up/Referrals: Darrin Summers MD [Primary Care Provider] - (PLEASE CALL YOUR PRIMARY CARE PROVIDER TO SCHEDULE A DISCHARGE FOLLOW-UP APPOINTMENT WITHIN 7-10 DAYS.) Diet: Regular Addtl Attending Provider Instructions: You were admitted to the hospital for Pulmonary Embolism. You were treated with blood thinners. You will be discharged on a blood thinner called Lovenox, to be administered subcutaneously twice a day to prevent further clots. Please follow up with your PCP to transition from Lovenox to Warfarin. We have noted a small infarct on your left kidney on imaging. Your kidney is still functioning at a normal level, at this size it should not impact your day to day life. A discharge summary will be sent to your primary care physician to ensure continuity of care. Please bring this discharge summary with you to your next office appointment so that your provider can review it at that time. Follow-up appointments: Make a follow-up appointment with your PCP within the next week. It is very important that you follow up with them shortly after discharge from the hospital. Keep all your follow-up appointments as already scheduled. If you cannot make an appointment, notify your provider. Medications: Your medication list has been reviewed and reconciled upon discharge to ensure accuracy and continuity of care. An updated list of all your medications is included with your hospital discharge paperwork. Please review this list closely, and make note of any changes. * We sent a new medication called Lovenox to your pharmacy. Take Lovenox 150mg (1ml) subcutaneously twice a day until you are started on warfarin at a therapeutic dosage. Take your medications as instructed; do not skip a dose of your medicines. Make sure all of your doctors know every medicine you are taking (including [id number]-jey-rtrhocy medicines, vitamins, and supplements). Call your primary care provider before taking any new medicines (including qvcr-[id number]-joykuip medicines, vitamins, and supplements), because some of these may interact with your current medications, or may make your symptoms worse. Tell your primary care provider if you cannot afford your medications. CONTACT YOUR PRIMARY CARE PROVIDER if you experience any of the following: Chest pain, difficulty breathing, sudden back pain coughing blood Difficulty following your treatment plan, or difficulty taking medications CALL 911 OR GO TO THE EMERGENCY DEPARTMENT if you experience any of the following: Sudden, severe abdominal pain or nausea/vomiting Severe chest pain, or chest pain that radiates (moves) to your jaw or arm Sudden, severe shortness of breath or difficulty breathing Thank you for allowing us to participate in your care. Pending Studies at Discharge: Yes Studies:: Hypercoagulability Studies Stand-Alone Forms: My [employer], Smoking Cessation Medications and DC Order Prescriptions: New enoxaparin [Lovenox] 150 mg/mL Syringe 150 mg subcut Q12H Qty: 10 1RF Continued pantoprazole 40 mg tablet,delayed release (DR/EC) 40 mg PO DAILY ursodiol 300 mg capsule 300 mg PO BID tretinoin 0.05 % cream 1 applic TOPICAL HS gabapentin 300 mg capsule 300 mg PO UD oxycodone 5 mg tablet 5 mg PO UD PRN (Reason: Pain) albuterol sulfate 90 mcg/actuation HFA aerosol inhaler 2 puff INHALATION Q4 PRN (Reason: Wheezing) etodolac 200 mg capsule 200 mg PO Q12H PRN (Reason: pain) Qty: 14 0RF ketoconazole 2 % shampoo 1 applic TOPICAL DAILY Discontinued Eliquis 5 mg tablet 10 mg PO BID Rx Instructions: Take 10 mg (2 tablets) twice daily for day 1 through 7; beginning on day #8 8 5 mg (1 tablet) twice daily Discharge Orders: Discharge Order (Routine); Ordered 04/09/22 Ordered By: Kitty Bhatia Admission Data Admit Date/Time: 04/08/22 10:40 Attending Provider: Yaakov Gandhi Admit Provider: Avila Neri Primary Care Provider: Darrin Summers Other Providers: Avila Neri Other Interventions: Discharge Summary Assessment (RN) Last Done: 04/09/22 14:15 Supervising Physician Co-Signing Physician Notes Attending attestation Pt seen and examined in concert with Dr. Bhatia. In agreement with the documented findings as noted in the resident documentation with any exceptions or additions as noted here. On rounds evaluation, patient laying in bed comfortably and reports no symptoms presently including chest pain, SOB with activity or at rest, palpitations or urinary difficulty/change in urination. On examination, S1/S2 nl RRR no MCG. CTAB. Abd NT/ND BS+ve Pulmonary embolism with worsening SOB - resolution of symptoms on heparin drip and emphatically desiring transition to outpatient care on enoxaparin bridge to warfarin 5mg for outpatient titration in 3 days with INR. Renal infarct, left - urnating well and labs without indication of impact to renal function. Anticoagulation as noted above. Transaminitis - noted on admission, resolved today on lab studies without GI complaint. Else see resident documentation as noted. Total attending time spent with this patient's care on the day of discharge: 45 minutes. Resident Activity Tracking Resident Involvement: Resident Care Provided Care Provided: Adult Hospital Medicine
[2022-04-13 00:03] LABS: Anti-Thrombin III Activity 104 % normal (80-135); Protein S Functional(Activity) 75 % normal (70-150)
[2022-04-14 17:46] LABS: B2 Glycoprotein IgA <2.0 U/mL (<20.0); B2 Glycoprotein IgG <2.0 U/mL (<20.0); B2 Glycoprotein IgM <2.0 U/mL (<20.0)
[2022-04-15 15:43] LABS: Phosphatidylserine IgG 14
[2022-04-15 15:44] LABS: Phosphatidylserine IgM <9
[2022-04-17 17:56] LABS: Factor 5 Mutation NEGATIVE
== END 2022-04-09 14:41 | disposition home or self-care (01) | DRG 176 ==
LOC: ED 07:10 → SUATTDRO 10:40 → 2N 10:40
DX: R74.01 Elevation of levels of liver transaminase levels; Z79.899 Other long term (current) drug therapy; Z68.39 Body mass index [BMI] 39.0-39.9, adult; E66.9 Obesity, unspecified; G47.33 Obstructive sleep apnea (adult) (pediatric); I26.94 Multiple subsegmental thrombotic pulmonary emboli without acute cor pulmonale; Z79.01 Long term (current) use of anticoagulants; Z88.4 Allergy status to anesthetic agent; K58.9 Irritable bowel syndrome, unspecified; Z20.822 Contact with and (suspected) exposure to COVID-19; N28.0 Ischemia and infarction of kidney